=== PATIENT | male | born 1965 | race Caucasian/White ===

== ENCOUNTER → 2023-06-06 | Outpatient (CLI) | payer BC ==
--- NOTE | 2023-06-12 11:56 | MR ---
EXAMINATION TYPE: MR shoulder LT wo con DATE OF EXAM: 06/06/2023 COMPARISON: None. HISTORY: Left shoulder pain for 2 years with difficulty raising arm overhead. Rotator cuff tear promi nent. TECHNIQUE: Multiplanar, multisequence imaging of the left shoulder is performed without contrast. FINDINGS: Rotator Cuff: Some increased signal in the supraspinatus and infraspinatus tendons. Subscapularis ten don is intact. Rotator cuff muscle bulk is preserved. Acromioclavicular Joint: Moderate spurring and narrowing of the acromioclavicular joint. Type II down sloping acromion. Glenohumeral Joint: Small sized joint effusion. No significant spurring. Labrum: Increased signal superior labrum suggesting degenerative tear. Biceps Tendon: The long head of biceps is in normal location within bicipital groove. Bone marrow signal: No focal abnormal marrow signal is appreciated. Other: No additional significant abnormality is appreciated. IMPRESSION: Tendinosis of the supraspinatus and infraspinatus tendons. Degenerative superior labral tear. AC join t arthropathy and type II downsloping acromion noted.
== END | disposition home or self-care (01) ==
LOC: RADMRIMAIN 18:23
PROVIDERS: ATTEND Family Medicine
DX: M19.012 Primary osteoarthritis, left shoulder (principal); M75.102 Unspecified rotator cuff tear or rupture of left shoulder, not specified as traumatic; M67.814 Other specified disorders of tendon, left shoulder